=== PATIENT | male | born 1955 | race African-American/Black ===

== ENCOUNTER 2018-11-30 09:41 | Emergency (ER) | payer OTHER ==
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
[2018-11-30] MEDS ORDERED: TRAM100T8 PO (09:45)
[2018-11-30] MEDS ORDERED: TELM1TAB12 (09:45)
[2018-11-30] MEDS ORDERED: METF-452 PO (09:45)
[2018-11-30] MEDS ORDERED: AMLO-127 PO (09:45)
[2018-11-30] MEDS ORDERED: KETOROLAC 60 MG/2 ML VIAL IM ONE (09:55)
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
[2018-11-30 11:00] VITALS: BP 143/112
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
[2018-11-30] MEDS ORDERED: ALBUTEROL 2.5 MG/3 ML NEB NEB ONE (11:25)
[2018-11-30] MEDS ORDERED: TRAM-420 PO (11:40)
[2018-11-30] MEDS ORDERED: OXYC-865 PO (11:41)
== END 2018-11-30 12:08 | disposition home or self-care (01) ==
LOC: ER 09:45
DX: S43.402A Unspecified sprain of left shoulder joint, initial encounter (principal)
CPT/HCPCS: 71046; 71100; 73030; 94640; 96372; 99284; A4565; J1885; J7613

== ENCOUNTER → 2018-11-30 | Outpatient (CLI) | payer OTHER ==
[~2018-11-30] MED LIST: AMLO-127 PO; METF-452 PO; OXYC-865 PO; TELM1TAB12; TRAM-420 PO; TRAM100T8 PO
== END ==
LOC: AMB 08:51
PROVIDERS: ATTEND Nurse Practitioner
DX: M25.512 Pain in left shoulder (principal); R07.81 Pleurodynia; V68.5XXA Driver of heavy transport vehicle injured in noncollision transport accident in traffic accident, initial encounter; Y92.411 Interstate highway as the place of occurrence of the external cause
CPT/HCPCS: A0425; A0427